=== PATIENT | female | born 1985 | race African-American/Black ===

== ENCOUNTER 2021-12-11 09:05 | Outpatient (CLI) | payer BC | END 2021-12-11 09:06 | disposition home or self-care (01) | LOC: BICMAMMO 09:05 | PROVIDERS: ATTEND Nurse Practitioner Women's Health | DX: N63.15 Unspecified lump in the right breast, overlapping quadrants (principal); N64.89 Other specified disorders of breast | CPT/HCPCS: 77066; G0279 ==